=== PATIENT | male | born 1975 | race African-American/Black ===

== ENCOUNTER 2016-08-05 16:30 | Emergency (ER) | payer SELFPAY ==
[2016-08-05 18:32] LABS: ALBUMIN 4.9 g/dL (3.5-5.0); BILIRUBIN - TOTAL 0.7 mg/dL (0.1-1.0); GLOBULIN (CALCULATION) 2.7 g/dL (2.2-4.2); POTASSIUM 4.2 mmol/L (3.5-5.1); TOTAL PROTEIN 7.6 g/dL (6.4-8.3)
[2016-08-05 18:36] LABS: BASOPHIL 0.1 % (0-2); EOSINOPHIL 0.2 % (0-5); HCT 44.7 % (42.0-52.0); HGB 15.3 g/dl (13.2-18.0); MCH 29.4 pg (25.0-31.0); MCHC 34.2 g/dL (32.0-36.0); MCV 85.8 fL (78.0-100.0); MONOCYTE 3.2 % (0-12); MPV 9.7 fL (6.0-9.5); PLT 332 K/uL (150-400); RBC 5.21 M/uL (4.70-6.00); RDW 13.4 % (11.5-14.0)
[2016-08-05 18:40] LABS: NEUTROPHIL 91.5 % (41-80)
== END 2016-08-05 21:40 | disposition home or self-care (01) ==
LOC: FER 16:30
PROVIDERS: Nurse Practitioner
DX: K50.90 Crohn's disease, unspecified, without complications (principal); K44.9 Diaphragmatic hernia without obstruction or gangrene; F17.210 Nicotine dependence, cigarettes, uncomplicated
CPT/HCPCS: 36415; 80053; 80305; 82150; 83690; 85025; 85651; J1710; J2270; J2405